=== PATIENT | female | born 1960 | race Two or more races ===

== ENCOUNTER 2022-08-17 04:26 | Day surgery (SDC) | payer OTHER ==
[2022-08-16 09:53] VITALS: BMI 38.3
[2022-08-17] MEDS ORDERED: LIDOCAINE VISCOUS 2% ORAL/TOP 15 ML UNIT-DOSE CUP ONE (12:37)
[2022-08-17] MEDS ORDERED: LIDOCAINE HCL 2% (20ML MULTI-DOSE VIAL) ONE (12:37)
[2022-08-17 14:41] VITALS: TEMP 97.1
[2022-08-17 14:42] VITALS: PULSE 65; RESP 20
[2022-08-17 14:45] VITALS: BP 140/89
== END 2022-08-17 13:50 | disposition home or self-care (01) ==
LOC: JASU-ENDO 04:26
PROVIDERS: ATTEND Student in an Organized Health Care Education/Training Program
PROC: 0DJD8ZZ Inspection of Lower Intestinal Tract, Via Natural or Artificial Opening Endoscopic (ICD-10-PCS; principal; 2022-08-17 12:00)
DX: Z12.11 Encounter for screening for malignant neoplasm of colon (principal); K57.30 Diverticulosis of large intestine without perforation or abscess without bleeding; K64.8 Other hemorrhoids; K59.89 Other specified functional intestinal disorders